=== PATIENT | male | born 1955 | race Caucasian/White ===

== ENCOUNTER 2019-09-15 18:50 | Inpatient (IN) | payer BC, MEDICARE ==
[~2019-09-15] VITALS: Ht 172.7 cm; Wt 89.8 kg
[2019-09-15 19:38] LABS: BASOPHILS % (AUTO) 0.3 % (0.0-5.0); EOSINOPHILS % (AUTO) 0.3 % (0.0-8.0); LYMPHOCYTES % (AUTO) 1.8 % (21.0-51.0); MEAN CORPUSCULAR HEMOGLOBIN 32.6 pg (27.0-33.0); MEAN CORPUSCULAR HGB CONC 36.8 g/dL (32.0-36.0); MEAN CORPUSCULAR VOLUME 88.4 fL (79-99); MONOCYTES % (AUTO) 5.2 % (3.0-13.0); NEUTROPHILS % (AUTO) 92.1 % (40.0-77.0); PLATELET COUNT (AUTO) 132 K/uL (130-400); RED CELL DISTRIBUTION WIDTH 12.1 % (11.0-15.5); WHITE BLOOD COUNT (AUTO) 9.2 K/uL (4.8-10.8)
[2019-09-15 19:55] LABS: INR 1.08 (0.85-1.15); PARTIAL THROMBOPLASTIN TIME 31.3 SEC (26.3-35.5); PROTHROMBIN TIME 11.6 SEC (9.6-11.6)
[2019-09-15] MEDS ORDERED: CEFTRIAXONE SODIUM 1 GM ONE (19:59)
[2019-09-15] MEDS ORDERED: AZITHROMYCIN 500MG+NS 250ML 250 ML IV ONE (19:59)
[2019-09-15] MEDS ORDERED: SODIUM CHLORIDE 0.9% 500ML 0 ML IV ONE (20:00)
[2019-09-15 20:04] LABS: CREATININE 1.6 mg/dL (0.5-1.5); POTASSIUM 3.2 mmol/L (3.5-5.1)
[2019-09-15 20:05] LABS: ABG BASE EXCESS 0.8 mmol/L (-2.0-3.0); ABG HCO3 23.6 mmol/L (21.0-28.0); ABG OXYGEN SATURATION 96.7 % (95.0-99.0); ABG PCO2 33 mmHg (35-48)
[2019-09-15 20:09] LABS: ALBUMIN 2.9 g/dL (3.5-5.0); BILIRUBIN,TOTAL 1.1 mg/dL (0.2-1.0)
[2019-09-15] MEDS: SODIUM CHLORIDE 0.9% 1000ML 1,000 ML IV SCH (20:59)
[2019-09-15] MEDS: ACETYLCYSTEINE 600 MG CAPSULE PO SCH (21:00)
[2019-09-15] MEDS ORDERED: ONDANSETRON HCL 4 MG/2 ML VIAL IV PRN (21:00)
[2019-09-15] MEDS ORDERED: ERGOCALCIFEROL (VITAMIN D2) 50,000 UNIT CAPSULE PO ONE (21:00)
[2019-09-15] MEDS ORDERED: ACETAMINOPHEN 325 MG TAB PO PRN ×2 (21:00)
[2019-09-15] MEDS ORDERED: BENZONATATE 100 MG CAPSULE PO PRN (21:00)
[2019-09-15] MEDS ORDERED: MAG HYDROX/AL HYDROX/SIMETH ES 30 ML SUSP UDCUP PO PRN (21:00)
[2019-09-15] MEDS ORDERED: DEXAMETHASONE SOD PHOSPHATE 10MG/ML 1ML VIAL ONE (21:04)
[2019-09-15] MEDS ORDERED: SODIUM CHLORIDE 0.9% 500ML 500 ML IV ONE (21:47)
[2019-09-15] MEDS ORDERED: IOHEXOL-350 75 ML VIAL IV ONE (21:58)
[2019-09-15] MEDS ORDERED: METHYLPREDNISOLONE SOD SUCC 40MG/ML 1ML ONE (22:56)
[2019-09-15] MEDS ORDERED: ERGOCALCIFEROL (VITAMIN D2) 50,000 UNIT CAPSULE ONE (22:57)
[2019-09-15] MEDS ORDERED: ACETYLCYSTEINE 600 MG CAPSULE ONE (22:57)
[2019-09-15] MEDS ORDERED: SODIUM CHLORIDE 0.9% 1000ML 1,000 ML IV ONE (22:57)
[2019-09-15] MEDS ORDERED: AZITHROMYCIN 250 MG TABLET PO ONE (22:58)
[2019-09-16] MEDS: POTASSIUM CHLORIDE 20 MEQ ERTAB PO SCH (01:30)
[2019-09-16] MEDS ORDERED: POTASSIUM CHLORIDE 20 MEQ ERTAB PO ONE (03:16)
[2019-09-16] MEDS: SODIUM CHLORIDE 0.9% 1000ML 1,000 ML IV SCH ×4 (03:39→23:39)
[2019-09-16 04:28] LABS: BASOPHILS % (AUTO) 0.2 % (0.0-5.0); EOSINOPHILS % (AUTO) 0.2 % (0.0-8.0); LYMPHOCYTES % (AUTO) 3.8 % (21.0-51.0); MEAN CORPUSCULAR HEMOGLOBIN 32.3 pg (27.0-33.0); MEAN CORPUSCULAR HGB CONC 35.2 g/dL (32.0-36.0); MEAN CORPUSCULAR VOLUME 91.7 fL (79-99); MONOCYTES % (AUTO) 2.1 % (3.0-13.0); NEUTROPHILS % (AUTO) 92.9 % (40.0-77.0); PLATELET COUNT (AUTO) 157 K/uL (130-400); RED BLOOD CELL COUNT(AUTO) 4.58 MIL/uL (4.50-6.20); RED CELL DISTRIBUTION WIDTH 12.2 % (11.0-15.5); WHITE BLOOD COUNT (AUTO) 11.8 K/uL (4.8-10.8)
[2019-09-16] MEDS ORDERED: METHYLPREDNISOLONE SOD SUCC 40MG/ML 1ML ONE ×3 (05:32→13:49)
[2019-09-16] MEDS: METHYLPREDNISOLONE SOD SUCC 125MG/2ML VIAL IVP SCH ×3 (06:00→21:08)
[2019-09-16 06:59] LABS: ALBUMIN 2.7 g/dL (3.5-5.0); BILIRUBIN,TOTAL 0.5 mg/dL (0.2-1.0); CREATININE 1.5 mg/dL (0.5-1.5); MAGNESIUM 2.2 mg/dL (1.80-2.40); POTASSIUM 3.7 mmol/L (3.5-5.1); TOTAL PROTEIN, SERUM 7.1 g/dL (6.0-8.3)
[2019-09-16] MEDS ORDERED: ASCORBIC ACID 500 MG TAB ONE (07:18)
[2019-09-16] MEDS ORDERED: ENOXAPARIN SODIUM 40 MG/0.4 ML SYRINGE SQ ONE (07:18)
[2019-09-16] MEDS ORDERED: ZINC SULFATE 220 CAPSULE ONE (07:18)
[2019-09-16 07:59] LABS: CRP QUANTITATIVE 211.1 mg/L (0.00-9.0)
[2019-09-16 08:10] LABS: APPEARANCE,URINE Clear (CLEAR); BILIRUBIN,URINE Small (NEGATIVE); COLOR,URINE Dark Yellow (YELLOW); GLUCOSE, URINE (UA) Negative (NEGATIVE); KETONES,URINE Trace mg/dL (NEGATIVE); LEUKOCYTE ESTERASE ,URINE Negative (NEGATIVE); NITRATE,URINE Negative (NEGATIVE); OCCULT BLOOD,URINE Negative (NEGATIVE); PROTEIN,URINE POS 1+ mg/dL (NEGATIVE)
[2019-09-16] MEDS ORDERED: ACETYLCYSTEINE 600 MG CAPSULE ONE (08:26)
[2019-09-16 08:38] LABS: BACTERIA,URINE Rare /HPF (None Seen); RBC,URINE 0-1 /HPF (0-1); SQUAMOUS EPITHELIAL CELL,UR Rare /HPF (0-2); WBC,URINE 0-1 /HPF (0-1)
[2019-09-16] MEDS ORDERED: AZITHROMYCIN 250 MG TABLET PO ONE (08:38)
[2019-09-16] MEDS: AZITHROMYCIN 250 MG TABLET PO SCH (09:00)
[2019-09-16] MEDS: ASCORBIC ACID 500 MG TAB PO SCH (09:00)
[2019-09-16] MEDS: ZINC SULFATE 220 CAPSULE PO SCH (09:00)
[2019-09-16] MEDS: ACETYLCYSTEINE 600 MG CAPSULE PO SCH ×2 (09:00→21:08)
[2019-09-16] MEDS ORDERED: ENOXAPARIN SODIUM 40 MG/0.4 ML SYRINGE SQ SCH (09:00)
[2019-09-16] MEDS ORDERED: ACETAMINOPHEN 325 MG TAB ONE (13:57)
[2019-09-16] MEDS ORDERED: BENZONATATE 100 MG CAPSULE PO ONE (13:57)
[2019-09-16 16:00] VITALS: BP 135/76
[2019-09-16] MEDS ORDERED: AMLO1CAP15 PO (17:06)
[2019-09-16 19:25] VITALS: BP 125/79
--- NOTE | 2019-09-16 22:17 | NUR ---
PAGED ONCALL PHYSICIAN INFORMED DR. CHUNG OF POSITIVE AEROBIC BLOOD CULTURES, GRAM POSITIVE COCCI IN CLUSTERS. NO NEW ORDERS RECEIVED AT THIS TIME- MD TO REVIEW THE CHART.
[2019-09-16 23:29] VITALS: BP 129/74
[2019-09-17] MEDS ORDERED: PHARMACY COMMUNICATION MISC SCH
[2019-09-17] MEDS: POTASSIUM CHLORIDE 20 MEQ ERTAB PO SCH (01:30)
[2019-09-17 03:54] VITALS: BP 126/61
[2019-09-17 04:38] LABS: BASOPHILS % (AUTO) 0.1 % (0.0-5.0); HEMATOCRIT 39.3 % (42-54); LYMPHOCYTES % (AUTO) 2.6 % (21.0-51.0); MEAN CORPUSCULAR HEMOGLOBIN 32.2 pg (27.0-33.0); MEAN CORPUSCULAR HGB CONC 35.1 g/dL (32.0-36.0); MEAN CORPUSCULAR VOLUME 91.8 fL (79-99); MONOCYTES % (AUTO) 2.3 % (3.0-13.0); NEUTROPHILS % (AUTO) 94.2 % (40.0-77.0); PLATELET COUNT (AUTO) 198 K/uL (130-400); RED BLOOD CELL COUNT(AUTO) 4.28 MIL/uL (4.50-6.20); RED CELL DISTRIBUTION WIDTH 12.4 % (11.0-15.5); WHITE BLOOD COUNT (AUTO) 13.2 K/uL (4.8-10.8)
[2019-09-17 04:53] LABS: ALBUMIN 2.5 g/dL (3.5-5.0); BILIRUBIN,TOTAL 0.4 mg/dL (0.2-1.0); CREATININE 1.2 mg/dL (0.5-1.5); POTASSIUM 4.4 mmol/L (3.5-5.1); TOTAL PROTEIN, SERUM 6.8 g/dL (6.0-8.3)
[2019-09-17] MEDS: METHYLPREDNISOLONE SOD SUCC 125MG/2ML VIAL IVP SCH ×3 (06:04→21:11)
[2019-09-17] MEDS: SODIUM CHLORIDE 0.9% 1000ML 1,000 ML IV SCH ×2 (06:19→13:38)
[2019-09-17 06:37] LABS: CRP QUANTITATIVE 164.6 mg/L (0.00-9.0)
[2019-09-17 08:00] VITALS: BP 143/84
--- NOTE | 2019-09-17 08:37 | NUR ---
JUAN ALBERTO- SPOKE TO DAUGHTER VIA PHONE FOR DC PLANNING SPOKE TO DELL - PATIENT IS ACTIVE, INDEPENDENT, EMPLOYED BY [employer], DRIVES, NO DME- HOME SAFE AND ACCESSIBLE. SEES DR. PUGA- PT TESTED TUESDAY, RESULT NOT YET BACK-ALL FAMILY BEING TESTED TODAY, JUST STARTING SYMPTOMS . DCP IS HOME, DAUGHTER TO PROVIDE TRANSPORT, FAMILY UPDATED ON PLAN OF CARE Addendum: 09/17/19 at 0842 by LESLIE TORRES RN CM Amended: Links added.
[2019-09-17] MEDS: AZITHROMYCIN 250 MG TABLET PO SCH (09:41)
[2019-09-17] MEDS: ACETYLCYSTEINE 600 MG CAPSULE PO SCH ×2 (09:41→21:00)
[2019-09-17] MEDS: ZINC SULFATE 220 CAPSULE PO SCH (09:42)
[2019-09-17] MEDS: ENOXAPARIN SODIUM 60 MG/0.6 ML SQ SCH (09:42)
[2019-09-17] MEDS: AMLODIPINE-BENAZEPRIL 5-10 MG PO SCH ×2 (09:42→11:58)
[2019-09-17] MEDS: ASCORBIC ACID 500 MG TAB PO SCH (09:42)
[2019-09-17 12:00] VITALS: BP 153/82
[2019-09-17] MEDS ORDERED: REMDESIVIR (EUA) 520 200 MG in SODIUM CHLORIDE 0.9% 250 ML IV ONE (13:00)
[2019-09-17] MEDS ORDERED: COMPOUND IV REFRIGERATED 1 EACH IVSOLN MISC PRN (13:00)
[2019-09-17] MEDS ORDERED: REMDESIVIR (EUA) 520 100 MG VIAL IV ONE (15:27)
[2019-09-17 16:00] VITALS: BP 136/71
[2019-09-17 19:30] VITALS: BP 123/73
[2019-09-18] VITALS: BP 121/62
[2019-09-18] MEDS: POTASSIUM CHLORIDE 20 MEQ ERTAB PO SCH ×2 (01:30→19:38)
[2019-09-18] MEDS: METHYLPREDNISOLONE SOD SUCC 125MG/2ML VIAL IVP SCH ×3 (04:48→22:23)
[2019-09-18 04:51] VITALS: BP 147/96
[2019-09-18 05:45] LABS: BASOPHILS % (AUTO) 0.2 % (0.0-5.0); HEMATOCRIT 40.7 % (42-54); LYMPHOCYTES % (AUTO) 3.9 % (21.0-51.0); MEAN CORPUSCULAR HEMOGLOBIN 31.7 pg (27.0-33.0); MEAN CORPUSCULAR HGB CONC 34.4 g/dL (32.0-36.0); MEAN CORPUSCULAR VOLUME 92.3 fL (79-99); MONOCYTES % (AUTO) 3.1 % (3.0-13.0); NEUTROPHILS % (AUTO) 91.8 % (40.0-77.0); PLATELET COUNT (AUTO) 222 K/uL (130-400); RED BLOOD CELL COUNT(AUTO) 4.41 MIL/uL (4.50-6.20); RED CELL DISTRIBUTION WIDTH 12.3 % (11.0-15.5); WHITE BLOOD COUNT (AUTO) 10.3 K/uL (4.8-10.8)
[2019-09-18] MEDS: PHARMACY COMMUNICATION MISC SCH (06:00)
[2019-09-18 06:07] LABS: ALBUMIN 2.5 g/dL (3.5-5.0); BILIRUBIN,TOTAL 0.4 mg/dL (0.2-1.0); CREATININE 1.2 mg/dL (0.5-1.5); CRP QUANTITATIVE 118.9 mg/L (0.00-9.0); TOTAL PROTEIN, SERUM 7.1 g/dL (6.0-8.3)
[2019-09-18] MEDS: ASCORBIC ACID 500 MG TAB PO SCH (08:09)
[2019-09-18] MEDS: ZINC SULFATE 220 CAPSULE PO SCH (08:09)
[2019-09-18] MEDS: AZITHROMYCIN 250 MG TABLET PO SCH (08:09)
[2019-09-18] MEDS: AMLODIPINE-BENAZEPRIL 5-10 MG PO SCH (08:09)
[2019-09-18] MEDS: ENOXAPARIN SODIUM 60 MG/0.6 ML SQ SCH (08:10)
[2019-09-18 08:22] VITALS: BP 133/67
[2019-09-18] MEDS: ACETYLCYSTEINE 600 MG CAPSULE PO SCH ×2 (09:00→21:00)
[2019-09-18 10:38] VITALS: BP 143/95
[2019-09-18] MEDS: REMDESIVIR (EUA) 520 100 MG in SODIUM CHLORIDE 0.9% 250 ML IV SCH (14:05)
[2019-09-18 16:27] VITALS: BP 140/71
[2019-09-18 20:23] VITALS: BP 142/82
[2019-09-19] VITALS: BP 96/54
--- NOTE | 2019-09-19 01:54 | NUR ---
plasma PATIENT RECEIVED TWO UNITS OF CONVALESCENT PLASMA NO REACTIONS NOTED. PATIENT TOLERATED WELL.
[2019-09-19 04:00] VITALS: BP 123/71
[2019-09-19] MEDS: METHYLPREDNISOLONE SOD SUCC 125MG/2ML VIAL IVP SCH ×3 (05:37→20:25)
[2019-09-19] MEDS: PHARMACY COMMUNICATION MISC SCH (05:47)
[2019-09-19 06:35] LABS: BASOPHILS % (AUTO) 0.3 % (0.0-5.0); LYMPHOCYTES % (AUTO) 4.5 % (21.0-51.0); MEAN CORPUSCULAR HEMOGLOBIN 32.3 pg (27.0-33.0); MEAN CORPUSCULAR HGB CONC 34.6 g/dL (32.0-36.0); MEAN CORPUSCULAR VOLUME 93.2 fL (79-99); MONOCYTES % (AUTO) 5.2 % (3.0-13.0); NEUTROPHILS % (AUTO) 88.5 % (40.0-77.0); PLATELET COUNT (AUTO) 226 K/uL (130-400); RED CELL DISTRIBUTION WIDTH 12.2 % (11.0-15.5)
[2019-09-19 07:02] LABS: ALBUMIN 2.5 g/dL (3.5-5.0); BILIRUBIN,TOTAL 0.4 mg/dL (0.2-1.0); CREATININE 1.1 mg/dL (0.5-1.5); POTASSIUM 3.9 mmol/L (3.5-5.1); TOTAL PROTEIN, SERUM 6.6 g/dL (6.0-8.3)
[2019-09-19 07:45] VITALS: BP 121/61
[2019-09-19] MEDS: AMLODIPINE-BENAZEPRIL 5-10 MG PO SCH (09:54)
[2019-09-19] MEDS: AZITHROMYCIN 250 MG TABLET PO SCH (09:54)
[2019-09-19] MEDS: ASCORBIC ACID 500 MG TAB PO SCH (09:54)
[2019-09-19] MEDS: ZINC SULFATE 220 CAPSULE PO SCH (09:54)
[2019-09-19] MEDS: ENOXAPARIN SODIUM 60 MG/0.6 ML SQ SCH (09:58)
[2019-09-19] MEDS ORDERED: NITROGLYCERIN 0.4 MG SL TAB SL ONE (10:44)
[2019-09-19 11:00] VITALS: BP 140/71
--- NOTE | 2019-09-19 11:29 | NUR ---
Removed nitro SL on this wrong patient.
[2019-09-19] MEDS ORDERED: SODIUM CHLORIDE 0.9% 250 ML IV ONE (13:23)
[2019-09-19] MEDS: REMDESIVIR (EUA) 520 100 MG in SODIUM CHLORIDE 0.9% 250 ML IV SCH (13:29)
[2019-09-19 16:00] VITALS: BP 131/93
[2019-09-19 19:00] VITALS: BP 139/76
[2019-09-19] MEDS: POTASSIUM CHLORIDE 20 MEQ ERTAB PO SCH (20:15)
[2019-09-19] MEDS: ACETYLCYSTEINE 20% 200MG/ML 4ML VIAL PO SCH (20:25)
[2019-09-19] MEDS ORDERED: MORPHINE SULFATE 2 MG/ML 1ML SYG IV ONE (21:15)
[2019-09-19] MEDS ORDERED: VANCOMYCIN PROTOCOL PER PHARMACY IV SCH (23:00)
[2019-09-20] VITALS (7 sets, daily range): BP systolic 123–141; BP diastolic 63–76
[2019-09-20] MEDS ORDERED: VANCOMYCIN 2 GM in SODIUM CHLORIDE 0.9% 500ML 500 ML IV SCH (01:00)
[2019-09-20] MEDS ORDERED: VANCOMYCIN 1GM+NS 250ML 500 ML IV ONE (01:48)
[2019-09-20 04:56] LABS: BASOPHILS % (AUTO) 0.3 % (0.0-5.0); HEMATOCRIT 40.9 % (42-54); LYMPHOCYTES % (AUTO) 3.5 % (21.0-51.0); MEAN CORPUSCULAR HEMOGLOBIN 31.4 pg (27.0-33.0); MEAN CORPUSCULAR VOLUME 92.3 fL (79-99); PLATELET COUNT (AUTO) 181 K/uL (130-400); RED BLOOD CELL COUNT(AUTO) 4.43 MIL/uL (4.50-6.20); RED CELL DISTRIBUTION WIDTH 12.2 % (11.0-15.5); WHITE BLOOD COUNT (AUTO) 12.9 K/uL (4.8-10.8)
[2019-09-20] MEDS: PHARMACY COMMUNICATION MISC SCH ×2 (05:01→19:30)
[2019-09-20 05:13] LABS: ALBUMIN 2.4 g/dL (3.5-5.0); BILIRUBIN,TOTAL 0.5 mg/dL (0.2-1.0); TOTAL PROTEIN, SERUM 6.4 g/dL (6.0-8.3)
[2019-09-20] MEDS: METHYLPREDNISOLONE SOD SUCC 125MG/2ML VIAL IVP SCH (05:16)
[2019-09-20] MEDS ORDERED: COMPOUND IV REFRIGERATED 1 EACH IVSOLN MISC PRN (06:30)
[2019-09-20] MEDS: AZITHROMYCIN 250 MG TABLET PO SCH (09:36)
[2019-09-20] MEDS: ASCORBIC ACID 500 MG TAB PO SCH (09:37)
[2019-09-20] MEDS: ZINC SULFATE 220 CAPSULE PO SCH (09:37)
[2019-09-20] MEDS: AMLODIPINE-BENAZEPRIL 5-10 MG PO SCH (09:37)
[2019-09-20] MEDS: METHYLPREDNISOLONE SOD SUCC 40MG/ML 1ML IVP SCH ×2 (09:40→16:38)
[2019-09-20] MEDS: ENOXAPARIN SODIUM 60 MG/0.6 ML SQ SCH (09:40)
[2019-09-20] MEDS: ACETYLCYSTEINE 20% 200MG/ML 4ML VIAL PO SCH ×2 (09:41→20:13)
[2019-09-20] MEDS: REMDESIVIR (EUA) 520 100 MG in SODIUM CHLORIDE 0.9% 250 ML IV SCH (12:36)
[2019-09-20] MEDS ORDERED: CEFTRIAXONE SODIUM 1 GM IVP SCH (13:00)
[2019-09-20] MEDS ORDERED: VANCOMYCIN 1.25 GM in SODIUM CHLORIDE 0.9% 250 ML IV SCH (18:00)
[2019-09-20] MEDS: POTASSIUM CHLORIDE 20 MEQ ERTAB PO SCH (19:30)
[2019-09-20] MEDS: HYDROMORPHONE 1 MG/1 ML AMP IVP PRN ×2 (20:47→22:39)
--- NOTE | 2019-09-20 22:59 | NUR ---
SATURATION PATIENT WAS FOUND IN BED WITH NRB MASK OFF ON ROOM AIR. PATIENT SATURATION WAS 61% WE THEN PLACED PATIENT BACK ON NRM MASK AT 15LPM AND PATIENT WAS PLACE IN PRONE POSITION. SLOWLY PATIENT CAME BACK UP TO 93% SATURATION. PATIENT THEN TOLD ME, HE WAS DOING AN EXPERIMENT, TO SEE IF HE COULD BE OFF THE OXYGEN. PATIENT WAS TOLD ONLY MEDICAL STAFF COULD WEAN HIM OFF THE OXYGEN SLOWLY NO ALL AT ONCE. PATIENT WAS TOLD NOT TO DO ANY EXPERIMENTS ANYMORE. PATIENT STATED HE WOULD NOT.
--- NOTE | 2019-09-20 23:30 | NUR ---
MASK PATIENT WILL NOT LEAVE NRB MASK ON Diana MONREAL MANUFACTURING DEVELOPMENT ENGINEER PAGED. SHE CALLED BACK AN WAS INFORMED OF SITUATION AND SHE THEN ORDERED AN ABG TO BE DRAWN AND TO LET HER KNOW OF RESULTS.
[2019-09-21] VITALS (56 sets, daily range): BP systolic 24–151; BP diastolic 13–82
[2019-09-21] MEDS: METHYLPREDNISOLONE SOD SUCC 40MG/ML 1ML IVP SCH ×3 (00:16→17:46)
--- NOTE | 2019-09-21 01:00 | NUR ---
ABG PATIENT'S ABG RESULTS CALLED IN TO Diana MCGRATH AND ODER GIVEN FOR HIGH FLOW O2. RT ATTEMPTED TO PLACE PATIENT ON THE HIGH FLOW O2 BUT PATIENT WOULD NOT LEAVE IT IN PLACE. PATIENT CONFUSED AND BECOMING IRATE SO WE PLACED PATIENT BACK ON A NON-REBREATHER MASK. Diana MCGRATH CONTACTED AGAIN TO GIVE HER AN UPDATE ON PATIENT. SHE GAVE ORDERS FOR A 1:1 SITTER TO HELP PATIENT KEEP THE NRB MASK IN PLACE. WE WILL CONTINUE MONITOR PATIENT.
[2019-09-21 01:17] LABS: ABG BASE EXCESS 2.2 mmol/L (-2.0-3.0); ABG HCO3 26.6 mmol/L (21.0-28.0); ABG OXYGEN SATURATION 80.2 % (95.0-99.0); ABG PCO2 41 mmHg (35-48)
[2019-09-21 04:12] LABS: BASOPHILS % (AUTO) 0.3 % (0.0-5.0); HEMATOCRIT 39.9 % (42-54); LYMPHOCYTES % (AUTO) 1.7 % (21.0-51.0); MEAN CORPUSCULAR HEMOGLOBIN 31.8 pg (27.0-33.0); MEAN CORPUSCULAR HGB CONC 34.6 g/dL (32.0-36.0); MEAN CORPUSCULAR VOLUME 91.9 fL (79-99); MONOCYTES % (AUTO) 2.8 % (3.0-13.0); NEUTROPHILS % (AUTO) 91.8 % (40.0-77.0); PLATELET COUNT (AUTO) 88 K/uL (130-400); RED BLOOD CELL COUNT(AUTO) 4.34 MIL/uL (4.50-6.20); RED CELL DISTRIBUTION WIDTH 12.6 % (11.0-15.5); WHITE BLOOD COUNT (AUTO) 17.3 K/uL (4.8-10.8)
[2019-09-21] MEDS ORDERED: HYDROMORPHONE HCL 2 MG/ML VIAL ONE (04:25)
[2019-09-21 04:51] LABS: ALBUMIN 2.4 g/dL (3.5-5.0); BILIRUBIN,TOTAL 0.9 mg/dL (0.2-1.0); CREATININE 1.5 mg/dL (0.5-1.5); CRP QUANTITATIVE 95.9 mg/L (0.00-9.0); POTASSIUM 3.9 mmol/L (3.5-5.1); TOTAL PROTEIN, SERUM 6.4 g/dL (6.0-8.3)
--- NOTE | 2019-09-21 06:15 | NUR ---
SOB PATIENT BEGAN TO DESATURATE INTO THE 70'S AND HIS HEART RATE FLUCTUATED FROM THE 80'S TO THE 150'S. PATIENT WAS IN PRONE POSITION WITH A NON REBREATHER MASK(NRB), BUT WAS IMPROVING. I WAS GOING TO [facility] CASTANO MY ASSISTANT PRESSMAN CALLED ME THAT THE PATIENT HAD GONE UNRESPONSIVE. I ENTERED THE ROOM I FOUND PATIENT WITH AGONAL BREATHING AND NO PALPABLE PULSE. THE CODE BLUE WAS INITIATED AT 0625 WE STARTED COMPRESSIONS AND VENTILATIONS AT THIS TIME. WE ALSO GAVE FIRST ROUND OF MEDS. EMERGENCY DOCTOR ARRIVED TO INTUBATE AND ONCE HE DID PATIENT WAS PLACED ON A VENTILATOR. PATIENT DID NOT HAVE A PULSE AT THIS TIME. AT THIS TIME I TOOK THE TIME TO CALL THE PATIENT'S DAUGHTER AND INFORM HER OF HER FATHER'S CONDITION. CPR WAS CONTINUED UNTIL WE ACHIEVED ROSC. DR FELIZ WAS INFORMED OF PATIENT CONDITION AND HE GAVE ORDER FOR ICU BED AND PROTOCOLS. OMAR WOOD FORM THE HOSPITALIST GROUP AT BED SIDE AND DID GIVE INITIAL ORDERS. DAUGHTER WAS CALLED ONCE MORE TO INFORM HER OF HER FATHER'S STATUS OF HAVING A HEART BEAT AND BEING INTUBATED. I DID LET HER KNOW WE WERE WAITING ON AN ICU BED AND SHE WOULD BE INFORMED ONCE WE HAD A BED. REPORT WAS GIVEN TO ONCOMING SHIFT LAZARUS RN AND ONCOMING ICU NURSE YARA MONTOYA. ALL QUESTIONS AND CONCERNS ADDRESSED. PLEASE ALSO REFER TO CODE SHEET.
[2019-09-21 07:14] LABS: ABG BASE EXCESS -15.8 mmol/L (-2.0-3.0); ABG HCO3 15.6 mmol/L (21.0-28.0); ABG OXYGEN SATURATION 79.8 % (95.0-99.0); ABG PCO2 61 mmHg (35-48)
[2019-09-21] MEDS: AZITHROMYCIN 500MG+NS 250ML 250 ML IV SCH (07:15)
--- NOTE | 2019-09-21 07:15 | NUR ---
ABGS ABG RESULTS REVIEWED. DR. FELIZ NOTIFIED. N/O FOR 2 AMPS SODIUM BICARB, START SODIUM BICARB GTT, INSERT CENTRAL LINE, INSERT A-LINE, AND PUT PT IN PRONE POSITION WHEN ARRIVE TO ICU. WILL CARRY OUT ORDERS AND CONT TO MONITOR.
[2019-09-21] MEDS ORDERED: SODIUM BICARB 50MEQ 50ML VIAL IV SCH (07:45)
[2019-09-21] MEDS ORDERED: FENTANYL CITRATE PF 0.05 MG/ML 1,000 MCG in SODIUM CHLORIDE 0.9% 100 ML IVPB PRN (07:45)
[2019-09-21] MEDS ORDERED: SODIUM BICARB 8.4% 50ML SYRING 150 MEQ in DEXTROSE 5%-WATER 1,000 ML IV SCH (07:45)
[2019-09-21] MEDS ORDERED: FENTANYL 2500MCG+NS 250ML 250 ML IV ONE ×2 (07:55→15:24)
[2019-09-21] MEDS ORDERED: NOREPINEPHRINE 4MG/NS 250ML 250 ML IV ONE ×2 (07:56→12:21)
[2019-09-21] MEDS: AMLODIPINE-BENAZEPRIL 5-10 MG PO SCH (09:00)
[2019-09-21] MEDS ORDERED: ENOXAPARIN SODIUM 1 MG/KG SQ SCH (09:00)
[2019-09-21] MEDS: ASCORBIC ACID 500 MG TAB PO SCH (09:00)
[2019-09-21] MEDS: ZINC SULFATE 220 CAPSULE PO SCH (09:00)
[2019-09-21] MEDS: ACETYLCYSTEINE 20% 200MG/ML 4ML VIAL PO SCH ×2 (09:00→20:01)
[2019-09-21] MEDS: ENOXAPARIN SODIUM 100 MG/1 ML SQ SCH ×2 (09:18→20:17)
[2019-09-21] MEDS ORDERED: SODIUM CHLORIDE 0.9% 500ML 500 ML IV ONE (09:18)
[2019-09-21] MEDS: MIDAZOLAM 100MG-0.9% NS 100ML 50 ML IV PRN (09:20)
--- NOTE | 2019-09-21 10:15 | NUR ---
pt received in bed ett in place, vent settings checked fentanyl, versed, and levophed infusing bedside hot kettle tender showing ST @ 101 Lung sounds diminished bilaterally TOP LIFT COMPRESSOR at bedside for central and art line insertion.
[2019-09-21] MEDS ORDERED: NOREPINEPHRINE BITARTRATE 32 MG in SODIUM CHLORIDE 0.9% 250 ML IV SCH (12:30)
[2019-09-21] MEDS ORDERED: PHARMACY COMMUNICATION MISC SCH (12:30)
--- NOTE | 2019-09-21 13:07 | NUR ---
RD NOTIFICATION - TUBE FEEDING Pt s/p Intubation. Recommend initiate continuous tube feeding Pivot initiated at 15mls/hr. Goal rate 35mls/hr. Recommend Flushes at 160mls Q4hrs. Recommendations faxed to 2C ([phone]), RN notified. NUTRITION NOTE: Pt positive for COVID-19. WBC 17.3, BUN 43, GFR 50, BG 188, ALb 2.4. Pt with Obesity. Pt with History of Heart Healthy, 75gm CC diet order, tolerating at 50% PO intake. RD to continue to monitor. Please notify as additional nutrition concerns arise. Thank you.
[2019-09-21] MEDS ORDERED: PROPOFOL 1000 MG/100 ML IV SCH (13:15)
[2019-09-21] MEDS: CEFTAZIDIME PENTAHYDRATE 1 GM/VIAL IVP SCH ×2 (13:31→20:16)
[2019-09-21] MEDS: PROPOFOL 1000 MG/100 ML 100 ML IV SCH ×2 (14:01→22:47)
[2019-09-21 14:02] LABS: ABG BASE EXCESS -0.8 mmol/L (-2.0-3.0); ABG HCO3 22.6 mmol/L (21.0-28.0); ABG OXYGEN SATURATION 95.9 % (95.0-99.0); ABG PCO2 34 mmHg (35-48)
[2019-09-21] MEDS: REMDESIVIR (EUA) 520 100 MG in SODIUM CHLORIDE 0.9% 250 ML IV SCH (15:11)
--- NOTE | 2019-09-21 16:00 | NUR ---
pt placed in prone position with RN and RT. pt tolerating well.
[2019-09-21 18:44] LABS: CREATININE 3.5 mg/dL (0.5-1.5); POTASSIUM 4.4 mmol/L (3.5-5.1)
[2019-09-21] MEDS: LINEZOLID 600 MG/ISO-OSM 300 ML IV SCH (22:47)
[2019-09-21] MEDS: POTASSIUM CHLORIDE 20 MEQ ERTAB PO SCH (23:40)
[2019-09-22] VITALS (89 sets, daily range): BP systolic 81–194; BP diastolic 39–73
[2019-09-22] MEDS: METHYLPREDNISOLONE SOD SUCC 40MG/ML 1ML IVP SCH ×2 (01:23→08:02)
[2019-09-22] MEDS: CEFTAZIDIME PENTAHYDRATE 1 GM/VIAL IVP SCH ×2 (02:35→12:15)
[2019-09-22] MEDS: MIDAZOLAM 100MG-0.9% NS 100ML 50 ML IV PRN ×2 (03:26→09:27)
[2019-09-22] MEDS: PHARMACY COMMUNICATION MISC SCH ×3 (06:00→11:30)
[2019-09-22 06:26] LABS: BASOPHILS % (AUTO) 0.3 % (0.0-5.0); HEMATOCRIT 42.4 % (42-54); LYMPHOCYTES % (AUTO) 1.8 % (21.0-51.0); MEAN CORPUSCULAR HEMOGLOBIN 31.8 pg (27.0-33.0); MEAN CORPUSCULAR HGB CONC 33.3 g/dL (32.0-36.0); MEAN CORPUSCULAR VOLUME 95.5 fL (79-99); MONOCYTES % (AUTO) 2.6 % (3.0-13.0); NEUTROPHILS % (AUTO) 92.3 % (40.0-77.0); NUCLEATED RED BLOOD CELLS 0.2 % (0.0-0.19); PLATELET COUNT (AUTO) 37 K/uL (130-400); RED BLOOD CELL COUNT(AUTO) 4.44 MIL/uL (4.50-6.20); RED CELL DISTRIBUTION WIDTH 13.5 % (11.0-15.5)
[2019-09-22 06:36] LABS: ALBUMIN 2.2 g/dL (3.5-5.0); BILIRUBIN,TOTAL 0.6 mg/dL (0.2-1.0); CREATININE 5.4 mg/dL (0.5-1.5); TOTAL PROTEIN, SERUM 5.9 g/dL (6.0-8.3)
[2019-09-22 06:45] LABS: INR 1.57 (0.85-1.15); PARTIAL THROMBOPLASTIN TIME 37.8 SEC (26.3-35.5); PROTHROMBIN TIME 16.7 SEC (9.6-11.6)
[2019-09-22 07:19] LABS: D-DIMER > 10000 ng/mL (0-500)
[2019-09-22 07:32] LABS: ABG BASE EXCESS -1.8 mmol/L (-2.0-3.0); ABG HCO3 24.3 mmol/L (21.0-28.0); ABG OXYGEN SATURATION 99.6 % (95.0-99.0); ABG PCO2 46 mmHg (35-48)
[2019-09-22 07:37] LABS: WHITE BLOOD COUNT (AUTO) 34.7 K/uL (4.8-10.8)
[2019-09-22] MEDS: AZITHROMYCIN 500MG+NS 250ML 250 ML IV SCH (08:02)
[2019-09-22] MEDS: LINEZOLID 600 MG/ISO-OSM 300 ML IV SCH (08:03)
[2019-09-22] MEDS ORDERED: VASOPRESSIN 40 UNITS in SODIUM CHLORIDE 0.9% 40 ML IV SCH (08:30)
[2019-09-22 08:44] LABS: LYMPHOCYTES % (MANUAL) 2 % (22-44); METAMYELOCYTES % 1 % (0-0); MONOCYTES % (MANUAL) 3 % (2-9); MYELOCYTES % 1 % (0-0); SEGMENTED NEUTROPHILS % 93 % (40-70)
[2019-09-22 08:45] LABS: PLATELET MORPHOLOGY COMMENT MARKED DECREASE
[2019-09-22] MEDS: ASCORBIC ACID 500 MG TAB PO SCH (09:00)
[2019-09-22] MEDS: ENOXAPARIN SODIUM 100 MG/1 ML SQ SCH (09:00)
[2019-09-22] MEDS: ZINC SULFATE 220 CAPSULE PO SCH (09:00)
[2019-09-22] MEDS: ACETYLCYSTEINE 20% 200MG/ML 4ML VIAL PO SCH ×2 (09:00→20:32)
[2019-09-22] MEDS: AMLODIPINE-BENAZEPRIL 5-10 MG PO SCH (09:00)
[2019-09-22] MEDS: PROPOFOL 1000 MG/100 ML 100 ML IV SCH (09:28)
[2019-09-22] MEDS ORDERED: HYDROCORTISONE SOD SUCCINATE 100 MG/2 ML VIAL ONE (12:19)
--- NOTE | 2019-09-22 13:00 | NUR ---
Pt placed in supine position with RN, RT, and tech. pt tolerated well.
[2019-09-22] MEDS: HYDROCORTISONE SOD SUCCINATE 100 MG/2 ML VIAL IV SCH ×2 (13:38→18:00)
--- NOTE | 2019-09-22 14:15 | NUR ---
Dr. Mchugh rounding on pt. As per MD recommendations are fortaz 1g q24hr, BMP q12, cbc daily, dc vancomycin and try alternative such as daptomycin. MD wants to discuss plan of care with family as the prognosis is poor. RN will discuss plan with family.
[2019-09-22] MEDS ORDERED: FENTANYL 2500MCG+NS 250ML 250 ML IV ONE (20:35)
[2019-09-22 20:44] LABS: CREATININE 7.6 mg/dL (0.5-1.5); POTASSIUM 5.1 mmol/L (3.5-5.1)
--- NOTE | 2019-09-22 21:34 | NUR ---
BUN Critical Received Critical Lab BUN 110, Nephrology has already been consulted of possible kidney failure, family is aware of options.
[2019-09-23] VITALS (106 sets, daily range): BP systolic 49–177; BP diastolic 37–61
[2019-09-23] MEDS: HYDROCORTISONE SOD SUCCINATE 100 MG/2 ML VIAL IV SCH ×4 (00:31→17:41)
[2019-09-23] MEDS: POTASSIUM CHLORIDE 20 MEQ ERTAB PO SCH ×2 (01:30→02:42)
[2019-09-23 04:32] LABS: BASOPHILS % (AUTO) 0.3 % (0.0-5.0); HEMATOCRIT 39.1 % (42-54); LYMPHOCYTES % (AUTO) 1.4 % (21.0-51.0); MEAN CORPUSCULAR HEMOGLOBIN 32.4 pg (27.0-33.0); MEAN CORPUSCULAR HGB CONC 33.8 g/dL (32.0-36.0); MEAN CORPUSCULAR VOLUME 95.8 fL (79-99); MONOCYTES % (AUTO) 2.9 % (3.0-13.0); NEUTROPHILS % (AUTO) 93.6 % (40.0-77.0); NUCLEATED RED BLOOD CELLS 0.2 % (0.0-0.19); PLATELET COUNT (AUTO) 37 K/uL (130-400); RED BLOOD CELL COUNT(AUTO) 4.08 MIL/uL (4.50-6.20); RED CELL DISTRIBUTION WIDTH 13.2 % (11.0-15.5)
[2019-09-23 04:40] LABS: WHITE BLOOD COUNT (AUTO) 32.5 K/uL (4.8-10.8)
[2019-09-23 04:47] LABS: INR 1.39 (0.85-1.15); PARTIAL THROMBOPLASTIN TIME 36.1 SEC (26.3-35.5); PROTHROMBIN TIME 14.8 SEC (9.6-11.6)
[2019-09-23 05:01] LABS: MAGNESIUM 2.9 mg/dL (1.80-2.40); POTASSIUM 5.1 mmol/L (3.5-5.1)
[2019-09-23 05:20] LABS: CREATININE 8.8 mg/dL (0.5-1.5)
[2019-09-23 05:24] LABS: D-DIMER > 10000 ng/mL (0-500)
[2019-09-23] MEDS: AZITHROMYCIN 500MG+NS 250ML 250 ML IV SCH (06:36)
[2019-09-23 07:37] LABS: ABG BASE EXCESS -4.1 mmol/L (-2.0-3.0); ABG HCO3 21.5 mmol/L (21.0-28.0); ABG OXYGEN SATURATION 98.9 % (95.0-99.0); ABG PCO2 41 mmHg (35-48)
[2019-09-23] MEDS: ASCORBIC ACID 500 MG TAB PO SCH (07:46)
[2019-09-23] MEDS: AMLODIPINE-BENAZEPRIL 5-10 MG PO SCH (07:46)
[2019-09-23] MEDS: ACETYLCYSTEINE 20% 200MG/ML 4ML VIAL PO SCH ×2 (07:46→19:25)
[2019-09-23] MEDS: ZINC SULFATE 220 CAPSULE PO SCH (07:47)
[2019-09-23] MEDS: CALCIUM CHLORIDE 100 MG/ML 10 ML SYG IVP SCH (07:58)
[2019-09-23] MEDS: DEXAMETHASONE SOD PHOSPHATE 4 MG/ML 1ML VIAL IVP SCH (08:00)
--- NOTE | 2019-09-23 08:41 | NUR ---
pt with multifocal frequent pvcs. calcium level low. Dr. Salamanca made aware. verbal order for 2g calcium ivp once.
[2019-09-23] MEDS ORDERED: FENTANYL 2500MCG+NS 250ML 250 ML IV ONE ×2 (09:03→21:53)
[2019-09-23] MEDS: MIDAZOLAM 100MG-0.9% NS 100ML 50 ML IV PRN (09:44)
[2019-09-23] MEDS: PROPOFOL 1000 MG/100 ML 100 ML IV SCH ×2 (12:02→17:33)
[2019-09-23] MEDS: CEFTAZIDIME PENTAHYDRATE 1 GM/VIAL IVP SCH (12:11)
[2019-09-23 13:02] LABS: ABG BASE EXCESS -3.2 mmol/L (-2.0-3.0); ABG HCO3 22.4 mmol/L (21.0-28.0); ABG OXYGEN SATURATION 96.6 % (95.0-99.0); ABG PCO2 42 mmHg (35-48)
[2019-09-23] MEDS ORDERED: ACETAMINOPHEN 650 MG SUPPOSITORY RC SCH (17:15)
[2019-09-23] MEDS ORDERED: ACETAMINOPHEN 650 MG SUPPOSITORY RC ONE (17:17)
[2019-09-24] VITALS (100 sets, daily range): BP systolic 28–178; BP diastolic 18–102
[2019-09-24] MEDS: POTASSIUM CHLORIDE 20 MEQ ERTAB PO SCH (01:30)
[2019-09-24 04:59] LABS: BASOPHILS % (AUTO) 0.2 % (0.0-5.0); HEMATOCRIT 37.6 % (42-54); LYMPHOCYTES % (AUTO) 1.7 % (21.0-51.0); MEAN CORPUSCULAR HEMOGLOBIN 31.7 pg (27.0-33.0); MEAN CORPUSCULAR VOLUME 96.2 fL (79-99); MONOCYTES % (AUTO) 3.1 % (3.0-13.0); NEUTROPHILS % (AUTO) 93.3 % (40.0-77.0); NUCLEATED RED BLOOD CELLS 0.2 % (0.0-0.19); PLATELET COUNT (AUTO) 24 K/uL (130-400); RED BLOOD CELL COUNT(AUTO) 3.91 MIL/uL (4.50-6.20); RED CELL DISTRIBUTION WIDTH 12.8 % (11.0-15.5); WHITE BLOOD COUNT (AUTO) 28.8 K/uL (4.8-10.8)
[2019-09-24 05:09] LABS: INR 1.32 (0.85-1.15); PARTIAL THROMBOPLASTIN TIME 33.4 SEC (26.3-35.5); PROTHROMBIN TIME 14.1 SEC (9.6-11.6)
[2019-09-24] MEDS ORDERED: NOREPINEPHRINE 4MG/NS 250ML 250 ML IV ONE (05:22)
[2019-09-24 05:34] LABS: MAGNESIUM 3.1 mg/dL (1.80-2.40); PHOSPHORUS 8.5 mg/dL (2.5-4.9); POTASSIUM 5.8 mmol/L (3.5-5.1)
[2019-09-24 05:45] LABS: CREATININE 12.2 mg/dL (0.5-1.5)
[2019-09-24 05:51] LABS: D-DIMER > 10000 ng/mL (0-500)
[2019-09-24] MEDS: HYDROCORTISONE SOD SUCCINATE 100 MG/2 ML VIAL IV SCH ×4 (06:00→17:04)
[2019-09-24] MEDS ORDERED: FENTANYL 2500MCG+NS 250ML 250 ML IV ONE ×2 (08:37→22:26)
[2019-09-24] MEDS: DEXAMETHASONE SOD PHOSPHATE 4 MG/ML 1ML VIAL IVP SCH (08:38)
[2019-09-24] MEDS: PROPOFOL 1000 MG/100 ML 100 ML IV SCH ×2 (08:38→18:17)
[2019-09-24] MEDS: AMLODIPINE-BENAZEPRIL 5-10 MG PO SCH (09:00)
[2019-09-24] MEDS: ACETYLCYSTEINE 20% 200MG/ML 4ML VIAL PO SCH ×2 (09:00→21:16)
[2019-09-24] MEDS: ASCORBIC ACID 500 MG TAB PO SCH (09:00)
[2019-09-24] MEDS: ZINC SULFATE 220 CAPSULE PO SCH (09:00)
[2019-09-24] MEDS: AZITHROMYCIN 500MG+NS 250ML 250 ML IV SCH (09:44)
[2019-09-24] MEDS: CEFTAZIDIME PENTAHYDRATE 1 GM/VIAL IVP SCH (10:03)
[2019-09-24 12:06] LABS: ABG BASE EXCESS -6.5 mmol/L (-2.0-3.0); ABG HCO3 18.9 mmol/L (21.0-28.0); ABG OXYGEN SATURATION 95.2 % (95.0-99.0); ABG PCO2 37 mmHg (35-48)
[2019-09-24] MEDS: CALCIUM CHLORIDE 100 MG/ML 10 ML SYG IVP SCH (17:05)
[2019-09-24 22:28] LABS: CREATININE 14.9 mg/dL (0.5-1.5); POTASSIUM 7.6 mmol/L (3.5-5.1)
[2019-09-25] VITALS (99 sets, daily range): BP systolic 55–137; BP diastolic 38–63
[2019-09-25] MEDS: HYDROCORTISONE SOD SUCCINATE 100 MG/2 ML VIAL IV SCH ×5 (00:37→19:33)
[2019-09-25 05:43] LABS: HEMATOCRIT 35.1 % (42-54); MEAN CORPUSCULAR HEMOGLOBIN 32.1 pg (27.0-33.0); MEAN CORPUSCULAR HGB CONC 33.3 g/dL (32.0-36.0); MEAN CORPUSCULAR VOLUME 96.4 fL (79-99); NUCLEATED RED BLOOD CELLS 0.2 % (0.0-0.19); PLATELET COUNT (AUTO) 22 K/uL (130-400); RED BLOOD CELL COUNT(AUTO) 3.64 MIL/uL (4.50-6.20); RED CELL DISTRIBUTION WIDTH 12.7 % (11.0-15.5); WHITE BLOOD COUNT (AUTO) 24.9 K/uL (4.8-10.8)
[2019-09-25 06:04] LABS: INR 1.43 (0.85-1.15); PARTIAL THROMBOPLASTIN TIME 30.3 SEC (26.3-35.5); PROTHROMBIN TIME 15.2 SEC (9.6-11.6)
[2019-09-25 06:11] LABS: BAND NEUTROPHILS % (MANUAL) 1 % (0-2); MAN.DIFF COMMENT-IMPRESSION MANUAL DIFFERENTIAL; MONOCYTES % (MANUAL) 4 % (2-9); PLATELET MORPHOLOGY COMMENT MARKED DECREASE; REACTIVE LYMPHOCYTES 1 % (0-0); SEGMENTED NEUTROPHILS % 94 % (40-70)
[2019-09-25 06:17] LABS: MAGNESIUM 3.2 mg/dL (1.80-2.40); PHOSPHORUS 10.8 mg/dL (2.5-4.9)
[2019-09-25 06:26] LABS: CREATININE 15.5 mg/dL (0.5-1.5); POTASSIUM 7.4 mmol/L (3.5-5.1)
[2019-09-25] MEDS: AZITHROMYCIN 500MG+NS 250ML 250 ML IV SCH (06:59)
[2019-09-25 07:29] LABS: ABG BASE EXCESS -7.7 mmol/L (-2.0-3.0); ABG HCO3 18.4 mmol/L (21.0-28.0); ABG OXYGEN SATURATION 89.8 % (95.0-99.0); ABG PCO2 40 mmHg (35-48)
[2019-09-25 07:51] LABS: D-DIMER > 10000 ng/mL (0-500)
[2019-09-25] MEDS: ASCORBIC ACID 500 MG TAB PO SCH (08:50)
[2019-09-25] MEDS: DEXAMETHASONE SOD PHOSPHATE 4 MG/ML 1ML VIAL IVP SCH (08:50)
[2019-09-25] MEDS: ZINC SULFATE 220 CAPSULE PO SCH (08:50)
[2019-09-25] MEDS: ACETYLCYSTEINE 20% 200MG/ML 4ML VIAL PO SCH ×2 (09:00→21:43)
[2019-09-25] MEDS: CEFTAZIDIME PENTAHYDRATE 1 GM/VIAL IVP SCH (10:08)
[2019-09-25] MEDS: PROPOFOL 1000 MG/100 ML 100 ML IV SCH ×2 (10:09→16:54)
--- NOTE | 2019-09-25 13:09 | NUR ---
[facility]#[id number] Addendum: 09/25/19 at 1309 by CORRIE SANCHEZ Amended: Links added.
[2019-09-25] MEDS ORDERED: FENTANYL 2500MCG+NS 250ML 250 ML IV ONE (13:13)
[2019-09-25] MEDS: MIDAZOLAM 100MG-0.9% NS 100ML 50 ML IV PRN (13:15)
[2019-09-25 21:14] LABS: CREATININE 17.6 mg/dL (0.5-1.5); POTASSIUM 9.3 mmol/L (3.5-5.1)
--- NOTE | 2019-09-25 22:10 | NUR ---
Critical Labs Notified Dr. Torres of Critical Labs Potassium, Glucose, Creatinine, BUN.. No new orders/interventions.
[2019-09-26] VITALS (21 sets, daily range): BP systolic 0–109; BP diastolic 0–50
[2019-09-26 05:23] LABS: MEAN CORPUSCULAR HEMOGLOBIN 31.5 pg (27.0-33.0); MEAN CORPUSCULAR HGB CONC 32.5 g/dL (32.0-36.0); MEAN CORPUSCULAR VOLUME 96.8 fL (79-99); NUCLEATED RED BLOOD CELLS 0.3 % (0.0-0.19); PLATELET COUNT (AUTO) 28 K/uL (130-400); RED BLOOD CELL COUNT(AUTO) 3.72 MIL/uL (4.50-6.20); WHITE BLOOD COUNT (AUTO) 27.9 K/uL (4.8-10.8)
[2019-09-26 05:53] LABS: INR 1.24 (0.85-1.15); PARTIAL THROMBOPLASTIN TIME 28.2 SEC (26.3-35.5); PROTHROMBIN TIME 13.3 SEC (9.6-11.6)
[2019-09-26 06:08] LABS: MONOCYTES % (MANUAL) 1 % (2-9); SEGMENTED NEUTROPHILS % 99 % (40-70)
[2019-09-26 06:09] LABS: MAN.DIFF COMMENT-IMPRESSION MANUAL DIFFERENTIAL; PLATELET MORPHOLOGY COMMENT MARKED DECREASE
[2019-09-26] MEDS: HYDROCORTISONE SOD SUCCINATE 100 MG/2 ML VIAL IV SCH (06:10)
[2019-09-26 06:16] LABS: MAGNESIUM 3.6 mg/dL (1.80-2.40)
[2019-09-26 06:28] LABS: PHOSPHORUS 13.9 mg/dL (2.5-4.9)
[2019-09-26 06:30] LABS: CREATININE 18.8 mg/dL (0.5-1.5); POTASSIUM 9.6 mmol/L (3.5-5.1)
[2019-09-26 06:40] LABS: D-DIMER > 10000 ng/mL (0-500)
--- NOTE | 2019-09-26 09:27 | NUR ---
Pt at 850. Family and MD notified. MG notified, pt not a candidate for donation.
[2019-09-28] MEDS ORDERED: HYDROCORTISONE SOD SUCCINATE 100 MG/2 ML VIAL IV SCH (12:00)
== END 2019-09-26 08:51 | disposition expired | DRG 870 ==
LOC: EDH 18:50 → EDHIP 20:59 → 3AH 09-16 16:11 → 2CH 09-21 10:00
PROVIDERS: ADMIT Internal Medicine; ATTEND Internal Medicine
PROC: XW13325 Transfusion of Convalescent Plasma (Nonautologous) into Peripheral Vein, Percutaneous Approach, New Technology Group 5 (ICD-10-PCS; 2019-09-18)
PROC: 5A1955Z Respiratory Ventilation, Greater than 96 Consecutive Hours (ICD-10-PCS; principal; 2019-09-21)
PROC: 0BH17EZ Insertion of Endotracheal Airway into Trachea, Via Natural or Artificial Opening (ICD-10-PCS; 2019-09-21)
PROC: XW033E5 Introduction of Remdesivir Anti-infective into Peripheral Vein, Percutaneous Approach, New Technology Group 5 (ICD-10-PCS; 2019-09-21)
DX: A41.89 Other specified sepsis (principal); U07.1 COVID-19; J96.01 Acute respiratory failure with hypoxia; J12.89 Other viral pneumonia; R65.21 Severe sepsis with septic shock; K72.00 Acute and subacute hepatic failure without coma; J96.02 Acute respiratory failure with hypercapnia; E87.1 Hypo-osmolality and hyponatremia; N17.9 Acute kidney failure, unspecified; Z99.11 Dependence on respirator [ventilator] status; E87.6 Hypokalemia; I10 Essential (primary) hypertension; E78.5 Hyperlipidemia, unspecified; I46.9 Cardiac arrest, cause unspecified; Z66 Do not resuscitate; E83.51 Hypocalcemia; E83.39 Other disorders of phosphorus metabolism; E66.9 Obesity, unspecified; D69.6 Thrombocytopenia, unspecified; B95.7 Other staphylococcus as the cause of diseases classified elsewhere; B96.89 Other specified bacterial agents as the cause of diseases classified elsewhere; D64.9 Anemia, unspecified; Z68.30 Body mass index [BMI] 30.0-30.9, adult; Z82.49 Family history of ischemic heart disease and other diseases of the circulatory system; R53.81 Other malaise; R73.9 Hyperglycemia, unspecified
CPT/HCPCS: 31500; 36415; 36430; 36600; 71045; 71275; 80048; 80053; 80202; 81001; 82550; 82728; 82803; 82948; 83605; 83615; 83735; 84100; 84145; 84484; 85025; 85378; 85610; 85730; 86140; 86900; 86901; 86927; 87040; 87071; 87077; 87088; 87186; 87205; 87804; 93005; 93970; 94002; 94003; G0378; J0456; J0696; J0713; J1100; J1170; J1650; J1720; J2020; J2704; J2920; J2930; J3010; J3370; J3490; J7030; J7040; J7050; J7070; J7608; Q9967; U0003